=== PATIENT | male | born 1980 | race Two or more races ===

== ENCOUNTER 2024-01-21 19:03 | Emergency (ER) | payer SELFPAY ==
[2024-01-21 19:09] VITALS: BP 156/93; PULSE 101; RESP 18; TEMP 37.1; O2SAT 96
[2024-01-21 19:55] VITALS: PULSE 99; RESP 16; O2SAT 99
[2024-01-21 20:01] VITALS: BMI 22.4
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
[2024-01-21] MEDS: IBUPROFEN TAB 400 MG TABLET 800 MG PO (20:30)
[2024-01-21 21:13] VITALS: BP 145/67; PULSE 90; RESP 19; TEMP 36.6; O2SAT 99
== END 2024-01-21 21:13 ==
LOC: SERX 21:31
PROVIDERS: Emergency Provider Emergency Medicine
DX: Z02.89 Encounter for other administrative examinations (principal); S20.211A Contusion of right front wall of thorax, initial encounter; Z65.3 Problems related to other legal circumstances; V59.40XA Driver of pick-up truck or van injured in collision with unspecified motor vehicles in traffic accident, initial encounter; Y92.410 Unspecified street and highway as the place of occurrence of the external cause
CPT/HCPCS: 71046; 99283; A9270